=== PATIENT | female | born 1995 | race Two or more races ===

== ENCOUNTER → 2022-04-02 | Emergency (ER) | payer OTHER ==
[~2022-04-02] VITALS: Ht 154.9 cm; Wt 69.9 kg
== END | disposition home or self-care (01) ==
LOC: ER 19:57
DX: O00-O9A Pregnancy, childbirth and the puerperium (principal); Z3A.18 18 weeks gestation of pregnancy; Z88.6 Allergy status to analgesic agent

== ENCOUNTER 2022-08-26 14:45 | Inpatient (IN) | payer OTHER ==
[~2022-08-26] VITALS: Ht 154.9 cm; Wt 88.5 kg
[2022-09-07] MEDS ORDERED: PRENATAL TABLE1 EAC1 PO (11:05)
== END 2022-09-09 14:20 | disposition home or self-care (01) | DRG 788 ==
LOC: OB/GYN 09-04 14:45 → LDR 09-07 05:44 → OB/GYN 09-07 15:48
PROVIDERS: ADMIT Obstetrics & Gynecology; ATTEND Obstetrics & Gynecology
PROC: 10D00Z1 Extraction of Products of Conception, Low, Open Approach (ICD-10-PCS; principal; 2022-09-07)
PROC: 4A1HXCZ Monitoring of Products of Conception, Cardiac Rate, External Approach (ICD-10-PCS; 2022-09-07)
DX: O80 Encounter for full-term uncomplicated delivery (principal); Z3A.40 40 weeks gestation of pregnancy; Z37.0 Single live birth; Z20.822 Contact with and (suspected) exposure to COVID-19

== ENCOUNTER 2022-08-30 11:44 | Outpatient (CLI) | payer OTHER | END 2022-08-30 13:01 | disposition home or self-care (01) | LOC: NST 11:44 | PROVIDERS: ATTEND Obstetrics & Gynecology Maternal & Fetal Medicine | DX: Z34.83 Encounter for supervision of other normal pregnancy, third trimester (principal) ==

== ENCOUNTER 2022-09-05 12:15 | Outpatient (CLI) | payer OTHER | END 2022-09-05 12:55 | disposition home or self-care (01) | LOC: NST 12:15 | PROVIDERS: ATTEND Obstetrics & Gynecology Maternal & Fetal Medicine | DX: Z34.83 Encounter for supervision of other normal pregnancy, third trimester (principal) ==